=== PATIENT | male | born 1985 | race Caucasian/White ===

== ENCOUNTER 2022-04-06 12:20 | Emergency (ER) | payer OTHER ==
[~2022-04-06] VITALS: Ht 175.3 cm; Wt 100.0 kg
[2022-04-06 12:24] VITALS: BP 152/106
[2022-04-06] MEDS ORDERED: IBUPROFEN 600MG TABLET PO ONE (15:15)
[2022-04-06] MEDS ORDERED: IBUP-2029 MT (15:37)
== END 2022-04-06 14:13 | disposition home or self-care (01) ==
LOC: ER 12:34
DX: M25.552 Pain in left hip (principal); M25.562 Pain in left knee; Z98.890 Other specified postprocedural states
CPT/HCPCS: 73502; 73560; 99284

== ENCOUNTER 2024-10-04 16:01 | Emergency (ER) | payer MEDICAID, OTHER ==
[~2024-10-04] VITALS: Ht 177.8 cm; Wt 85.0 kg
[~2024-10-04 16:01] MED LIST: IBUP-2029 MT
[2024-10-04 16:02] VITALS: O2SAT 16
[2024-10-04] MEDS: ONDANSETRON HCL 4MG/2ML INJ IV ONE (16:45)
[2024-10-04] MEDS: MORPHINE SULFATE 4 MG/ML INJ (FOR IV/IM USE) IV ONE ×2 (16:45→18:24)
[2024-10-04] MEDS: SODIUM CHLORIDE 0.9% (SEPSIS BOLUS) IV ONE (16:45)
[2024-10-04] MEDS: CEFTRIAXONE 1GM/50ML 50 ML IV ONE (16:46)
[2024-10-04 17:45] LABS: BASOPHILS % 0.3 % (0.0-2.0); EOSINOPHILS % 0.7 % (0.0-5.0); HEMATOCRIT. 38.1 % (42.0-52.0); HEMOGLOBIN. 12.5 g/dL (14.0-18.0); LYMPHOCYTES % 27.6 % (20.0-50.0); MEAN PLATELET VOLUME 7.1 fl (7.4-10.4); MONOCYTES % 5.8 % (2.0-8.0); NEUTROPHILS % 65.6 % (40.0-76.0); PLATELET 509 x1000/uL (130-400); RED BLOOD CELL COUNT 4.10 mill/uL (4.7-6.1); RED CELL DISTRIBUTION WIDTH 13.3 % (11.6-14.6)
[2024-10-04 17:59] LABS: CREATININE 0.9 mg/dL (0.6-1.3); UREA NITROGEN BLOOD 18 mg/dL (9-23)
[2024-10-04 18:01] LABS: ASPARTATE AMINOTRANSFERASE 18 IU/L (<34); BILIRUBIN DIRECT 0.1 mg/dL (<=3.0); BILIRUBIN TOTAL 0.4 mg/dL (0.1-1.0); PROTEIN TOTAL 7.3 g/dL (6.0-8.3)
[2024-10-04 18:03] LABS: INR 1.1
[2024-10-04 23:08] VITALS: BP 108/56; PULSE 67; RESP 18; TEMP 36.6; O2SAT 97
== END 2024-10-04 23:45 | disposition short-term general hospital (02) ==
LOC: ER 16:01 → CANBEDREQ 17:37 → ER 23:45
DX: G89.18 Other acute postprocedural pain (principal); R50.9 Fever, unspecified; I10 Essential (primary) hypertension; Z98.890 Other specified postprocedural states
CPT/HCPCS: 80076; 80048; 83605; 85025; 85610; 87040; 36415; 84145; 71045; 96365; 96375; 96376; 99291; J0696; J2405; J2270; J7030; Z7610 ×2

== ENCOUNTER 2024-11-08 14:18 | Inpatient (IN) | payer OTHER ==
[~2024-11-08] VITALS: Ht 167.6 cm; Wt 108.9 kg
[~2024-11-08 14:18] MED LIST changes: +IBUP-1455 MT; -IBUP-2029 MT
[2024-11-08 14:34] VITALS: O2SAT 97
[2024-11-08] MEDS ORDERED: MORPHINE SULFATE 4 MG/ML INJ (FOR IV/IM USE) IV ONE (15:30)
[2024-11-08 16:24] LABS: BASOPHILS % 0.7 % (0.0-2.0); EOSINOPHILS % 0.6 % (0.0-5.0); HEMATOCRIT. 38.7 % (42.0-52.0); HEMOGLOBIN. 12.7 g/dL (14.0-18.0); LYMPHOCYTES % 23.1 % (20.0-50.0); MEAN PLATELET VOLUME 6.5 fl (7.4-10.4); MONOCYTES % 7.6 % (2.0-8.0); NEUTROPHILS % 68.0 % (40.0-76.0); PLATELET 334 x1000/uL (130-400); RED BLOOD CELL COUNT 4.25 mill/uL (4.7-6.1); RED CELL DISTRIBUTION WIDTH 14.6 % (11.6-14.6)
[2024-11-08 16:42] LABS: CREATININE 0.8 mg/dL (0.6-1.3); UREA NITROGEN BLOOD < 5 mg/dL (9-23)
[2024-11-08 16:44] LABS: ASPARTATE AMINOTRANSFERASE 14 IU/L (<34); BILIRUBIN DIRECT 0.1 mg/dL (<=3.0); BILIRUBIN TOTAL 0.5 mg/dL (0.1-1.0); PROTEIN TOTAL 7.1 g/dL (6.0-8.3)
[2024-11-08] MEDS: MORPHINE SULFATE 4 MG/ML INJ (FOR IV/IM USE) IV SCH (19:42)
[2024-11-08] MEDS: CEFTRIAXONE 2GM/50ML 50 ML IV SCH (19:43)
[2024-11-09] VITALS (8 sets, daily range): BP systolic 110–141; BP diastolic 53–97; PULSE 67–94; RESP 17–20; TEMP 36.2–36.7; O2SAT 97–100
[2024-11-09] MEDS ORDERED: HYDROCODONE/ACETAMINOPHEN 10/325MG TABLET PO PRN (00:15)
[2024-11-09] MEDS ORDERED: ACETAMINOPHEN 325MG TABLET PO PRN ×3 (00:15→08:15)
[2024-11-09] MEDS: MORPHINE SULFATE 4 MG/ML INJ (FOR IV/IM USE) IV NR (01:15)
[2024-11-09] MEDS ORDERED: METH4TAB17 PO (01:55)
[2024-11-09] MEDS ORDERED: CETI10TA6 PO (01:55)
[2024-11-09] MEDS ORDERED: GABA-290 PO (01:55)
[2024-11-09] MEDS ORDERED: ATOR20TA65 PO (01:55)
[2024-11-09] MEDS ORDERED: HYDR50TA55 PO (01:55)
[2024-11-09] MEDS ORDERED: ACET-2708 PO (01:55)
[2024-11-09] MEDS ORDERED: OMEP20CA14 PO (01:55)
[2024-11-09] MEDS ORDERED: GALC120P SQ (01:55)
[2024-11-09] MEDS ORDERED: MECL-217 PO (01:55)
[2024-11-09] MEDS ORDERED: HYDR-4009 PO (01:55)
[2024-11-09] MEDS ORDERED: QUET25TA36 PO (01:55)
[2024-11-09] MEDS ORDERED: MIRT-89 PO (01:55)
[2024-11-09] MEDS ORDERED: ONDANSETRON HCL 4MG/2ML INJ IV PRN (07:45)
[2024-11-09] MEDS ORDERED: NALOXONE HCL 0.4MG/ML VIAL IV PRN (08:15)
[2024-11-09] MEDS ORDERED: *PATIENT'S OWN MEDICATION STORAGE XX SCH (08:45)
[2024-11-09] MEDS ORDERED: PANTOPRAZOLE 40MG DR TABLET PO SCH (09:00)
[2024-11-09 09:22] LABS: BASOPHILS % 0.4 % (0.0-2.0); EOSINOPHILS % 1.2 % (0.0-5.0); HEMATOCRIT. 38.1 % (42.0-52.0); HEMOGLOBIN. 12.4 g/dL (14.0-18.0); LYMPHOCYTES % 28.6 % (20.0-50.0); MEAN PLATELET VOLUME 6.8 fl (7.4-10.4); MONOCYTES % 9.6 % (2.0-8.0); NEUTROPHILS % 60.2 % (40.0-76.0); PLATELET 318 x1000/uL (130-400); RED BLOOD CELL COUNT 4.18 mill/uL (4.7-6.1); RED CELL DISTRIBUTION WIDTH 14.7 % (11.6-14.6)
[2024-11-09 09:42] LABS: CREATININE 0.8 mg/dL (0.6-1.3); TRIGLYCERIDE 156 mg/dL (0-150); UREA NITROGEN BLOOD 9 mg/dL (9-23)
[2024-11-09 09:43] LABS: LDL CHOLESTEROL 148 mg/dL (5-100)
[2024-11-09] MEDS: VANCOMYCIN 2GM PMX (XELLIA) 400 ML IV SCH (10:00)
[2024-11-09] MEDS: PANTOPRAZOLE SODIUM 40 MG/VIAL IV SCH (10:19)
[2024-11-09] MEDS: AMLODIPINE 10MG TABLET PO SCH (10:21)
[2024-11-09] MEDS: QUETIAPINE FUMARATE 25MG TABLET PO SCH (10:21)
[2024-11-09] MEDS: GABAPENTIN 300MG CAPSULE PO SCH (10:22)
[2024-11-09] MEDS: CETIRIZINE 10MG TABLET PO SCH (10:22)
[2024-11-09] MEDS: KETOROLAC 30MG/ML VIAL IV PRN (11:30)
[2024-11-09] MEDS ORDERED: CEFEPIME 2GM IN DEXT 5% 100ML IV SCH (19:30)
[2024-11-09] MEDS ORDERED: VANCOMYCIN 1.5GM PMX (XELLIA) 300 ML IV SCH (21:00)
[2024-11-09] MEDS: CEFEPIME 2GM PREMIX 100ML IV SCH (21:31)
[2024-11-09] MEDS: ATORVASTATIN CALCIUM 20MG TABLET PO SCH (21:31)
[2024-11-09] MEDS: MIRTAZAPINE 15MG TABLET PO SCH (21:31)
== END 2024-11-09 22:20 | disposition short-term general hospital (02) | DRG 383 ==
LOC: ER 14:18 → EDBEDREQ 18:00 → CANBEDREQ 18:42 → ENRESERV 22:01 → 6EST 22:40
PROVIDERS: ADMIT Internal Medicine; ATTEND Internal Medicine
DX: L02.415 Cutaneous abscess of right lower limb (principal); E66.01 Morbid (severe) obesity due to excess calories; L03.115 Cellulitis of right lower limb; I10 Essential (primary) hypertension; Z96.641 Presence of right artificial hip joint; Z68.38 Body mass index [BMI] 38.0-38.9, adult; M54.9 Dorsalgia, unspecified; E78.5 Hyperlipidemia, unspecified
CPT/HCPCS: 36415; 73700; 74176; 80048; 80061; 80076; 82550; 83605; 84145; 85025; 87426; 99285; J0692; J0696; J1885; J2270; J2470; J3373

== ENCOUNTER 2024-11-30 18:21 | Inpatient (IN) | payer OTHER ==
[~2024-11-30] VITALS: Ht 167.6 cm; Wt 103.9 kg
[~2024-11-30 18:21] MED LIST changes: +ACET-2708 PO; +ATOR20TA65 PO; +CETI10TA6 PO; +GABA-290 PO; +GALC120P SQ; +HYDR-4009 PO; +HYDR50TA55 PO; +MECL-217 PO; +METH4TAB17 PO; +MIRT-89 PO; +OMEP20CA14 PO; +QUET25TA36 PO
[2024-11-30 18:32] VITALS: O2SAT 100
[2024-11-30] MEDS ORDERED: MORPHINE SULFATE 4 MG/ML INJ (FOR IV/IM USE) IV ONE (19:00)
[2024-11-30] MEDS: ACETAMINOPHEN 500MG TABLET PO ONE (19:57)
[2024-11-30 20:06] LABS: CREATININE 0.9 mg/dL (0.6-1.3)
[2024-11-30 20:07] LABS: UREA NITROGEN BLOOD 7 mg/dL (9-23)
[2024-11-30 20:08] LABS: ASPARTATE AMINOTRANSFERASE 16 IU/L (<34); BILIRUBIN DIRECT 0.1 mg/dL (<=3.0)
[2024-11-30 20:09] LABS: BILIRUBIN TOTAL 0.4 mg/dL (0.1-1.0); PROTEIN TOTAL 7.4 g/dL (6.0-8.3)
[2024-11-30 20:12] LABS: BASOPHILS % 0.5 % (0.0-2.0); EOSINOPHILS % 0.4 % (0.0-5.0); HEMATOCRIT. 42.1 % (42.0-52.0); HEMOGLOBIN. 13.7 g/dL (14.0-18.0); LYMPHOCYTES % 23.3 % (20.0-50.0); MEAN PLATELET VOLUME 7.2 fl (7.4-10.4); MONOCYTES % 8.1 % (2.0-8.0); NEUTROPHILS % 67.7 % (40.0-76.0); PLATELET 316 x1000/uL (130-400); RED BLOOD CELL COUNT 4.68 mill/uL (4.7-6.1); RED CELL DISTRIBUTION WIDTH 15.1 % (11.6-14.6)
[2024-11-30] MEDS: MORPHINE SULFATE 4 MG/ML INJ (FOR IV/IM USE) IV SCH (21:33)
[2024-11-30] MEDS ORDERED: MAGNESIUM/ALUMINUM HYDROXIDE/SIMETHICONE 30ML UDC PO PRN (23:45)
[2024-11-30] MEDS ORDERED: ACETAMINOPHEN 325MG TABLET PO PRN (23:45)
[2024-11-30] MEDS ORDERED: IPRATROPIUM/ALBUTEROL 0.5-3(2.5)MG/3ML NEB HHN PRN (23:45)
[2024-11-30] MEDS ORDERED: GUAIFENESIN 200MG/10ML SUGAR FREE UDC PO PRN (23:45)
[2024-11-30] MEDS ORDERED: MELATONIN 3MG TABLET PO SCH (23:45)
[2024-11-30] MEDS ORDERED: DOCUSATE SODIUM 100MG CAPSULE PO PRN (23:45)
[2024-11-30] MEDS ORDERED: CLONIDINE 0.1MG TABLET PO PRN (23:45)
[2024-11-30] MEDS ORDERED: IBUPROFEN 600MG TABLET PO PRN (23:45)
[2024-11-30] MEDS ORDERED: ONDANSETRON HCL 4MG/2ML INJ IV PRN (23:45)
[2024-12-01 00:15] VITALS: BP 132/87; PULSE 73; RESP 18; TEMP 36.8628
[2024-12-01] MEDS ORDERED: NALOXONE HCL 0.4MG/ML VIAL IV PRN (00:15)
[2024-12-01] MEDS: KETOROLAC 15MG/ML VIAL IV PRN (01:31)
[2024-12-01] MEDS: HYDROXYZINE 25MG TABLET PO NR (01:32)
[2024-12-01] MEDS: GABAPENTIN 300MG CAPSULE PO SCH (01:32)
[2024-12-01] MEDS: PANTOPRAZOLE 40MG DR TABLET PO SCH (06:07)
[2024-12-01 08:00] VITALS: BP 125/80; PULSE 78; RESP 16; TEMP 36.8; O2SAT 96
[2024-12-01 08:07] LABS: BASOPHILS % 0.5 % (0.0-2.0); EOSINOPHILS % 1.0 % (0.0-5.0); HEMATOCRIT. 39.6 % (42.0-52.0); HEMOGLOBIN. 12.9 g/dL (14.0-18.0); LYMPHOCYTES % 21.5 % (20.0-50.0); MEAN PLATELET VOLUME 6.9 fl (7.4-10.4); MONOCYTES % 9.9 % (2.0-8.0); NEUTROPHILS % 67.1 % (40.0-76.0); PLATELET 266 x1000/uL (130-400); RED BLOOD CELL COUNT 4.40 mill/uL (4.7-6.1); RED CELL DISTRIBUTION WIDTH 15.2 % (11.6-14.6)
[2024-12-01 08:21] LABS: CREATININE 0.9 mg/dL (0.6-1.3)
[2024-12-01 08:22] LABS: UREA NITROGEN BLOOD 9 mg/dL (9-23)
[2024-12-01] MEDS: AMLODIPINE 10MG TABLET PO SCH (08:52)
[2024-12-01] MEDS: SERTRALINE HCL 50MG TABLET PO SCH (08:52)
[2024-12-01 08:59] LABS: HEPATITIS C AB NON REACTIVE (Neg) (Negative)
[2024-12-01 12:00] VITALS: BP 125/55; PULSE 85; RESP 20; TEMP 36.7; O2SAT 95
[2024-12-01 16:00] VITALS: BP 118/65; PULSE 86; RESP 19; TEMP 36.9; O2SAT 96
[2024-12-01 20:00] VITALS: BP 124/69; PULSE 89; RESP 16; TEMP 36.7; O2SAT 96
[2024-12-01] MEDS: MELATONIN 3MG TABLET PO SCH (20:52)
[2024-12-02] VITALS: BP 104/63; PULSE 76; RESP 16; TEMP 36.4; O2SAT 95
[2024-12-02 04:00] VITALS: BP 114/78; PULSE 77; RESP 16; TEMP 36.4; O2SAT 97
[2024-12-02 08:00] VITALS: BP 136/67; PULSE 76; RESP 20; TEMP 36.3; O2SAT 98
[2024-12-02 12:00] VITALS: BP 130/55; PULSE 77; RESP 20; TEMP 36.6; O2SAT 97
[2024-12-02 16:00] VITALS: BP 117/72; PULSE 74; RESP 16; TEMP 36.6; O2SAT 96
[2024-12-02 20:00] VITALS: BP 114/70; PULSE 84; RESP 18; TEMP 36.9; O2SAT 96
[2024-12-03] VITALS: BP 104/50; PULSE 68; RESP 17; TEMP 36.7; O2SAT 96
[2024-12-03 04:00] VITALS: BP 103/55; PULSE 70; RESP 17; TEMP 36.9; O2SAT 96
[2024-12-03 08:00] VITALS: BP 112/56; PULSE 71; RESP 17; TEMP 36.8; O2SAT 97
[2024-12-03] MEDS: HYDROCODONE/ACETAMINOPHEN 10/325MG TABLET PO PRN (08:52)
[2024-12-03 12:00] VITALS: BP_SYST 116; BP_SYST 118; BP_DIAS 57; BP_DIAS 71; PULSE 70; PULSE 80; RESP 18; TEMP 36.4; TEMP 36.7; O2SAT 97
[2024-12-03 12:47] LABS: CLARITY URINE TURBID (CLEAR); COLOR URINE ORANGE (YELLOW); GLUCOSE URINE NEGATIVE (NEGATIVE); KETONES URINE TRACE (NEGATIVE); LEUKOCYTE ESTERASE URINE NEGATIVE (NEGATIVE); NITRITE URINE NEGATIVE (NEGATIVE); OCCULT BLOOD URINE NEGATIVE (NEGATIVE); PH URINE 5.5 (4.5-8.0); PROTEIN URINE TRACE (NEGATIVE); SPECIFIC GRAVITY URINE 1.025 (1.005-1.030); UROBILINOGEN URINE 0.2 E.U./dL (0.2-1.0)
[2024-12-03 13:24] LABS: AMORPHOUS SEDIMENT URINE 3+ /lpf; BACTERIA URINE TRACE; RBC URINE 0-2 /hpf (0-2); SQUAMOUS EPITHELIAL CELL URINE RARE /lpf (RARE/1+); WBC URINE 0-2 /hpf (0-2); YEAST URINE NONE SEEN
[2024-12-03] MEDS: ACETAMINOPHEN 325MG TABLET PO PRN (15:57)
[2024-12-03 16:00] VITALS: BP 121/58; PULSE 70; RESP 19; TEMP 36.7; O2SAT 97
[2024-12-03 20:00] VITALS: BP 112/67; PULSE 77; RESP 17; TEMP 36.6; O2SAT 96
[2024-12-03 20:38] LABS: BASOPHILS % 0.4 % (0.0-2.0); EOSINOPHILS % 1.4 % (0.0-5.0); HEMATOCRIT. 38.2 % (42.0-52.0); HEMOGLOBIN. 12.3 g/dL (14.0-18.0); LYMPHOCYTES % 30.9 % (20.0-50.0); MEAN PLATELET VOLUME 7.1 fl (7.4-10.4); MONOCYTES % 8.8 % (2.0-8.0); NEUTROPHILS % 58.5 % (40.0-76.0); PLATELET 304 x1000/uL (130-400); RED BLOOD CELL COUNT 4.19 mill/uL (4.7-6.1); RED CELL DISTRIBUTION WIDTH 14.9 % (11.6-14.6)
[2024-12-03 22:49] LABS: CREATININE 1.0 mg/dL (0.6-1.3); UREA NITROGEN BLOOD 19 mg/dL (9-23)
[2024-12-03 22:51] LABS: PHOSPHORUS 4.7 mg/dL (2.5-4.9)
[2024-12-04] VITALS: BP 107/61; PULSE 74; RESP 17; TEMP 36.3; O2SAT 95
[2024-12-04 04:00] VITALS: BP 122/76; PULSE 77; RESP 19; TEMP 36.5; O2SAT 96
[2024-12-04 08:00] VITALS: BP 106/68; PULSE 69; RESP 18; TEMP 36.4; O2SAT 98
[2024-12-04] MEDS ORDERED: KETOROLAC 30MG/ML VIAL IV PRN (10:45)
[2024-12-04] MEDS: HYDROMORPHONE HCL/PF 1MG/ML INJ IV PRN (11:00)
[2024-12-04 12:00] VITALS: BP 126/78; PULSE 80; RESP 18; TEMP 36.4; O2SAT 98
[2024-12-04 16:00] VITALS: BP 103/67; PULSE 80; RESP 18; TEMP 36.5; O2SAT 97
[2024-12-04 20:00] VITALS: BP 124/70; PULSE 82; RESP 18; TEMP 36.5; O2SAT 96
[2024-12-05] VITALS: BP 112/70; PULSE 74; RESP 18; TEMP 36.3; O2SAT 95
[2024-12-05 08:00] VITALS: BP 119/76; PULSE 82; RESP 20; TEMP 36.8; O2SAT 96
[2024-12-05 12:00] VITALS: BP 143/118; PULSE 74; RESP 20; TEMP 36.8; O2SAT 95
[2024-12-05 20:00] VITALS: BP 114/74; PULSE 73; RESP 18; TEMP 36.4; O2SAT 97
[2024-12-06] VITALS: BP 125/75; PULSE 74; RESP 18; TEMP 36.2; O2SAT 93
[2024-12-06 04:00] VITALS: BP 107/59; PULSE 59; RESP 18; TEMP 36.2; O2SAT 95
[2024-12-06 08:00] VITALS: BP 131/71; PULSE 80; RESP 20; TEMP 36.3; O2SAT 97
[2024-12-06] MEDS: FAMOTIDINE 20MG TABLET PO SCH (08:46)
[2024-12-06 12:00] VITALS: BP 135/75; PULSE 75; RESP 20; TEMP 36.4; O2SAT 95
[2024-12-06 16:00] VITALS: BP 119/65; PULSE 74; RESP 20; TEMP 36.3; O2SAT 97
[2024-12-06 20:00] VITALS: BP 108/72; PULSE 78; RESP 18; TEMP 36.6; O2SAT 96
[2024-12-07] VITALS (7 sets, daily range): BP systolic 109–127; BP diastolic 64–78; PULSE 66–89; RESP 16–18; TEMP 36.1–36.5; O2SAT 94–97
[2024-12-07] MEDS ORDERED: HYDROMORPHONE HCL/PF 1MG/ML INJ IV PRN (09:00)
[2024-12-07] MEDS: HYDROMORPHONE HCL 2MG TABLET PO PRN (09:39)
[2024-12-07 15:38] LABS: BASOPHILS % 0.5 % (0.0-2.0); EOSINOPHILS % 2.6 % (0.0-5.0); HEMATOCRIT. 39.8 % (42.0-52.0); HEMOGLOBIN. 13.1 g/dL (14.0-18.0); LYMPHOCYTES % 19.5 % (20.0-50.0); MEAN PLATELET VOLUME 7.2 fl (7.4-10.4); MONOCYTES % 8.5 % (2.0-8.0); NEUTROPHILS % 68.9 % (40.0-76.0); PLATELET 327 x1000/uL (130-400); RED BLOOD CELL COUNT 4.46 mill/uL (4.7-6.1); RED CELL DISTRIBUTION WIDTH 14.5 % (11.6-14.6)
[2024-12-07 15:58] LABS: CREATININE 0.8 mg/dL (0.6-1.3); TRIGLYCERIDE 218 mg/dL (0-150); UREA NITROGEN BLOOD 13 mg/dL (9-23)
[2024-12-07 15:59] LABS: LDL CHOLESTEROL 133 mg/dL (5-100)
== END 2024-12-07 22:23 | disposition short-term general hospital (02) | DRG 861 ==
LOC: ER 18:21 → 8EST 21:46 → EDBEDREQTM 22:06 → EDBEDREQ 22:06 → ENRESERV 23:08
PROVIDERS: ADMIT Internal Medicine; ATTEND Internal Medicine
DX: G89.28 Other chronic postprocedural pain (principal); E78.00 Pure hypercholesterolemia, unspecified; I10 Essential (primary) hypertension; F32.A Depression, unspecified; G62.9 Polyneuropathy, unspecified; S42.294A Other nondisplaced fracture of upper end of right humerus, initial encounter for closed fracture; E83.52 Hypercalcemia; G43.909 Migraine, unspecified, not intractable, without status migrainosus; G47.00 Insomnia, unspecified; Z96.643 Presence of artificial hip joint, bilateral; F41.9 Anxiety disorder, unspecified; X58.XXXA Exposure to other specified factors, initial encounter; Y93.89 Activity, other specified; Z79.899 Other long term (current) drug therapy; Y92.89 Other specified places as the place of occurrence of the external cause; Y99.8 Other external cause status
CPT/HCPCS: 36415; 73030; 73200; 73221; 80048; 80061; 80076; 81003; 82550; 83735; 84100; 84443; 85025; 86705; 87340; 87426; 93005; 93970; 97110; 97162; 97166; 97168; 99285; J1171; J1885; J2270